=== PATIENT | female | born 1935 | race Caucasian/White ===

== ENCOUNTER 2022-07-14 14:30 | Outpatient (RCR) | payer MEDICARE, BC, SELFPAY ==
--- NOTE | 2022-06-28 20:14 | OT.OPGNE ---
OT Outpatient General/Neuro Eval OT Outpatient General/Neuro Eval Start: 06/23/22 15:47 Freq: Status: Active Protocol: Document 06/23/22 15:48 SMW (Rec: 06/23/22 15:58 SMW [id number]) E-signed By Marlen Kinsey OT OT Outpatient Evaluation Details Type Type Eval Complexity Low Insurance Information Insurance Information Insurance Information Blue [employer] Outpatient History/Precautions Medical/Functional History Medical History Reviewed Yes Prior Level of Function/Mobility Patient lives alone in her own condo after the recent passing of her spouse who was on hospice. She has a SPOUT LINER 2x per week for 2 hours and her daughter is supportive and speaks to her mother daily. She ambulates with a cane. She reports I in dressing. Her daughter sets up her medications and calls her mother 2x per day to remind her to take the meds. She reports community driving. Current Condition Treatment Diagnosis poor executive function, memory and orientation. Social History Type of Dwelling one level condo Number of Floors (Floors) 1 Number of Stairs to Enter (Stairs) 0 Lives With: Alone Physical Barriers in Home Environment Level, No Step Employment Status Retired Oriented Patient Orientation Person,Place Prior Medical History Prior Medical History Patient's medical history includes depression, arthritis , allergies. Patient Subjective Subjective Patient Subjective I am not sure why I am here. Home Maintenance Assessment ADL Oral Care Ability Independent Bathing Ability Independent Eating (Feeding) Ability Independent Upper Body Dressing Ability Independent Lower Body Dressing Ability Independent Grooming Ability Independent Toileting Ability Independent Ambulation Ability Independent Assistance Assistance Currently Received SPOUT LINER 2x per week and daughter involved and very supportive. Cognitive Assessments Performed Cognitive Assessments Performed Harvinder Cognitive Assessment (MOCA) Results Comments Cognitive Assessments Performed Comments Maze test completed in 59 seconds with 5 errors. Assessment Assessment Assessment The patient is a 86 year old female referred to outpatient OT for cognitive assessments to determine need for increased supervision and feasiblity of continuing to drive. The patient lives alone in her own condo. Her spouse within the last year. Her daughter present during evaluation and reports that patient will often call her to ask where her late is. The patient was not aware of why she was at her initiatl appointment. Daughter reports that the patient receives SPOUT LINER 2x per week and that the daughter is actively involved on a daily basis either in person or on the phone. During this initial assessment the MoCa was administered with the patient scoring 18/30. Normal cognition score 26/30 or greater.Deficits noted in executive function, language, orientation and delayed recall . The home safety/problem solving questionnaire was given with the patient scoring 8.5/17 indicating significant deficis in problem solving and safety concerns for living alone. Since the patient does still drive, the Maze test was completed with the patient completing it in 59 seconds but with 5 errors. The patient will benfit from skilled outpatient OT to complete cognitive assessments related to potential need for increased care and continued driving. Occupational Therapy Treatment Plan - OP Potential Rehabilitation Potential Good Set Goals Goals Set with Patient Yes Goals Goals Within 4 visits, the patient will.. 1. complete cognitive assessments to determine need for increased care. 2. complete off road driving assessments to determine feasibility of patient continuing to drive. 3. along with her daughter, understand recommendations provided. 4. be provided with resources for determined needs. Progress set Treatment Plan Treatment Plan Evaluation,Self-Care/Home Management,Caregiver Training, Education Expected Frequency 1x Week Certification Certification I Certify That: Therapy Services Provided, Therapy Plan Established, Therapy Plan Reviewed Recertification Information Recertification Information Initial Certification Date 06/23/22 Recertification Start Date 06/23/22 Provider Signature Shows Agreement With POC & Medical Necessity Physician Comment/Change Comment or Changes Physician NPI Number #
== END 2022-11-11 23:59 | disposition home or self-care (01) ==
PROVIDERS: PCP Family Medicine; Visit Provider Family Medicine
DX: R41.89 Other symptoms and signs involving cognitive functions and awareness (principal); Z51.89 Encounter for other specified aftercare
CPT/HCPCS: 97165; 97535

== ENCOUNTER 2022-08-10 10:53 | Outpatient (RCR) | payer SELFPAY | END 2022-08-29 16:59 | disposition home or self-care (01) | LOC: MOW 10:53 | PROVIDERS: PCP Family Medicine; Visit Provider Family Medicine | DX: Z76.0 Encounter for issue of repeat prescription (principal) | CPT/HCPCS: S5170 ==

== ENCOUNTER 2022-12-28 16:51 | Emergency (ER) | payer MEDICARE, BC, SELFPAY ==
[2022-12-28 16:57] VITALS: PULSE 74; RESP 16; TEMP 37.1; O2SAT 95; BMI 18.9
--- NOTE | 2022-12-28 17:16 | CRLHL7_ITS ---
For Patients: As a result of the Cures Act, medical imaging exams and procedure reports are released immediately into your electronic medical record. You may view this report before your referring provider. If you have questions, please contact your health care provider. INDICATION: Solomon fell on forearm, large laceration COMPARISON: None. TECHNIQUE: Two views left forearm. FINDINGS: BONES: No fracture. Low bone mineralization. No focal bone lesion. JOINT: Grossly normal elbow and wrist joint alignment. No elbow joint effusion. Joint spaces: Normal. Soft Tissues: Normal. No foreign body. IMPRESSION: No left forearm fracture or foreign body. Dictated by Dipti Cook MD @ 12/28/2022 6:09:39 PM (Electronically Signed)
--- NOTE | 2022-12-28 17:41 | ED.WOUNDLAC ---
HPI - Wound/Laceration General Date Seen: 12/28/22 Chief Complaint: Laceration/Wound Stated Complaint: Gash on L arm Time Seen by Provider: 12/28/22 16:56 Source: patient Mode of arrival: ambulatory Limitations: no limitations History of Present Illness HPI narrative: Patient is an 87-year-old female presented emergency department for lacerations or left forearm. She states roughly an hour prior to arrival a dresser was falling and she tried to catch it. That in a left arm leading to a large laceration. Bleeding is currently under control. Denies any other injuries. Has some mild pain to the left forearm. Last tetanus shot was 2016. Denies any numbness or weakness. No other concerns at this time Related Data Previous Rx's Medication Instructions Recorded aripiprazole 5 mg tablet (Abilify) 5 mg PO QDAY #90 tabs 08/08/22 donepezil 5 mg tablet 5 mg PO QHS #30 tabs 08/08/22 pregabalin 50 mg capsule 50 mg PO BID #180 caps 08/24/22 lorazepam 0.5 mg tablet 0.5 mg PO QDAY PRN anxiety #90 tabs 08/31/22 lorazepam 0.5 mg tablet 0.5 mg PO QHS #90 tabs 08/31/22 cholecalciferol (vitamin D3) 50 50 mcg PO QDAY #90 tabs 10/05/22 mcg (2,000 unit) tablet mecobalamin (vitamin B12) 1,000 1,000 mcg PO QDAY #90 tabs 10/05/22 mcg chewable tablet propranolol 10 mg tablet 10 mg PO BID #180 tabs 10/05/22 mirtazapine 45 mg tablet 45 mg PO QDAY #90 tabs 10/12/22 Allergies Allergy/AdvReac Type Severity Reaction Status Date / Time penicillin V Allergy Mild Rash Verified 08/08/22 15:51 PFSH [facility] Medical History (Updated 12/28/22 @ 19:18 by Sergio Cardona DO) Drooling ?K11.7 - Disturbances of salivary secretion (ICD-10) Dementia ?F03.90 - Unspecified dementia, unspecified severity, without behavioral disturbance, psychotic disturbance, mood disturbance, and anxiety (ICD-10) Decreased oral intake ?R63.8 - Other symptoms and signs concerning food and fluid intake (ICD-10) Grief ?F43.21 - Adjustment disorder with depressed mood (ICD-10) Encounter for medication management ?Z79.899 - Other intermission coordinator (current) drug therapy (ICD-10) Durable power of assistant city attorney in chart Vitamin D deficiency ?E55.9 - Vitamin D deficiency, unspecified (ICD-10) Anxiety ?F41.9 - Anxiety disorder, unspecified (ICD-10) Surgical History (Updated 01/10/22 @ 13:25 by Regine Ackerman) History of cataract extraction ?Z98.49 - Cataract extraction status, unspecified eye (ICD-10) Social History (Updated 01/10/22 @ 13:28 by Regien Ackerman) Narrative: nonsmoker Smoking Status: Never smoker Non-prescribed substance use: denies use Little interest or pleasure in doing things: more than half the days Feeling down, depressed, or hopeless: more than half the days Exam Const: Vital Signs, click to edit/add: Vital Signs - 24 hr 12/28/22 16:57 Temperature 98.8 F Pulse Rate [Pulse Oximeter] 74 Respiratory Rate 16 Pulse Oximetry 95 Oxygen Delivery Me thod Room Air Course Vital Signs Vital signs: Initial Vital Signs Temperature 98.8 F 12/28/22 16:57 Temperature Source Temporal Artery Scan 12/28/22 16:57 Pulse Rate 74 12/28/22 16:57 Respiratory Rate 16 12/28/22 16:57 Pulse Oximetry 95 12/28/22 16:57 Oxygen Delivery Method Room Air 12/28/22 16:57 Vital Signs Temperature 98.8 F 12/28/22 16:57 Pulse Rate 74 12/28/22 16:57 Respiratory Rate 16 12/28/22 16:57 Pulse Oximetry 95 12/28/22 16:57 Oxygen Delivery Method Room Air 12/28/22 16:57 Temperature 98.8 F 12/28/22 16:57 Pulse Rate 74 12/28/22 16:57 Respiratory Rate 16 12/28/22 16:57 Pulse Oximetry 95 12/28/22 16:57 Oxygen Delivery Method Room Air 12/28/22 16:57 MDM - Wound/Laceration MDM Narrative Medical decision making narrative: Patient is a 87 year female presented emergency department for left forearm laceration. It is a v-shaped laceration with a large flap that is still attached to the skin by about 1.5 cm at the base. Concerning the mechanism it do an x-ray which shows no acute fractures. I did do a laceration repair. See laceration procedure note. She tolerated the procedure well. No other concerns at this time. I believe it will heal well concerning there is a large be still attached. I did speak to the daughter informed to keep a close eye to look for signs of infection or necrotic skin. She states she understands. Imaging Data Left forearm x-ray: Radiologist's impression: INDICATION: Kincaid fell on forearm, large laceration COMPARISON: None. TECHNIQUE: Two views left forearm. FINDINGS: BONES: No fracture. Low bone mineralization. No focal bone lesion. JOINT: Grossly normal elbow and wrist joint alignment. No elbow joint effusion. Joint spaces: Normal. Soft Tissues: Normal. No foreign body. IMPRESSION: No left forearm fracture or foreign body. Dictated by Dipit Cook MD @ 12/28/2022 6:09:39 PM Discharge Plan Discharge Clinical Impression: Laceration Patient Disposition: Home, Self-Care Condition: Stable Instructions: Laceration (DC) Additional Instructions: Follow-up with your primary care provider in the next 10 days to have the 12 sutures removed. For next 6 months, once sutures are removed, whenever you goes outside put a dab of sunscreen over the laceration site to improve scar appearance. Topical antibiotics are not necessary at this time. Patient can shower but do not submerge the laceration until sutures are removed. If you see signs of infection or signs that the skin flap is not healing please follow-up sooner Prescriptions: No Action donepezil 5 mg tablet 5 mg PO QHS Qty: 30 2RF aripiprazole [Abilify] 5 mg tablet 5 mg PO QDAY Qty: 90 3RF pregabalin 50 mg capsule 50 mg PO BID Qty: 180 0RF lorazepam 0.5 mg tablet 0.5 mg PO QHS Qty: 90 0RF lorazepam 0.5 mg tablet 0.5 mg PO QDAY PRN (Reason: anxiety) Qty: 90 0RF cholecalciferol (vitamin D3) 50 mcg (2,000 unit) tablet 50 mcg PO QDAY Qty: 90 1RF propranolol 10 mg tablet 10 mg PO BID Qty: 180 1RF mecobalamin (vitamin B12) 1,000 mcg tablet,chewable 1,000 mcg PO QDAY Qty: 90 1RF mirtazapine 45 mg tablet 45 mg PO QDAY Qty: 90 3RF Follow Up/Referrals: Jose Alberto Lewis MD [Primary Care Provider] - Stand Alone Forms: [facility] Info Instructions Procedures Laceration Left forearm: Name of person performing procedure: Sergio Cardona Site: upper extremity Side (If applicable): left Size (cm): 6 (3 cm x 3 cm v-shaped) Description: linear and clean Depth: simple, single layer Local Anesthetic: lidocaine 1% Amount of anesthesia used (mL): 7 Pre-repair: wound explored, irrigated extensively and deep structures intact Skin layer closed with: nylon Size (cm): 4-0 Number of sutures: 12
--- OUTSIDE RECORDS SUMMARY | 2022-12-28 17:57 | XMS_ITS | Continuity of Care Document ---
Author Name Unknown Organization [facility] Address [address] [place] [address] Phone Care Team Providers Care Event Marketing Coordinator Name Role Phone Juventino Hammer MD Unavailable Unavailable Allergies, Adverse Reactions, Alerts Substance Reaction Status Criticality penicillamine Active No Information Medications Medication Instructions Dosage Effective Dates (start - stop) Status Comments multivitamin tablet take 1 tablet by ora l route every day with food - Active Vitamin B-12 500 mcg tablet take 1 tablet by oral route every day 1 tablet - Active Vitamin D3 1,000 unit capsule take 1 Capsule by Oral route every day 1 Capsule - Active aspirin 81 mg tablet,delayed release take 1 tablet by oral route every day 81 MG - Active Calcio Sherley 500 mg tablet take 2 Tablet by Oral route every day - Active Imodium A-D 1 mg/7.5 mL oral liquid - Active Procedures Procedure Date Office/Outpatient Visit, Est Routine Venipuncture Complete Cbc WAuto Diff Wbc Rbc Sed Rate, Nonautomated Assay Of Creatinine Transferase (Ast) (Sgot) CReactive Protein Rheumatoid Factor, IGM Rheumatoid Factor, IGG, IGA CCP Antibody Office/Outpatient Visit, Est Office/Outpatient Visit, Est Office/Outpatient Visit, Est Office/Outpatient Visit, New Routine Venipuncture Specimen Handling Rbc Sed Rate, Nonautomated CReactive Protein Assay Of Serum Albumin Assay Of Creatinine Transferase (Ast) (Sgot) Alanine Amino (Alt) (Sgpt) Results Test Name Date and Time Measure Units Reference Range Abnormal Flag Status Comments Panel Description: CBC Final WBC 16 16:40:00 4.4 K/uL 3.5-10.8 Final Lymphocyte% 16 16:40:00 34.9 % 15.1-43.0 Final Mid% Jun- 16 16:40:00 4.4 % 1.0-18.0 Final Gran% 16 16:40:00 60.7 % 45.0-76.0 Final Lymphocyte # 16 16:40:00 1.5 K/uL 0.9-5.2 Final Mid # 16 16:40:00 0.1 K/uL 0.1-2.0 Final Gran # 16 16:40:00 2.8 K/uL 1.4-19.0 Final RBC 16 16:40:00 3.89 M/uL 3.80-5.20 Final Hemoglobin 16 16:40:00 12.1 g/dL 11.5-16.0 Final Hematocrit 16 16:40:00 36.2 % 36.0-49.0 Final MCV 16 16:40:00 93 fL 81-100 Final MCH Jun- 16 16:40:00 31 pg 27-35 Final MCHC 16 16:40:00 33.5 g/dL 32.5-37.5 Final RDW Jun- 16 16:40:00 14.8 % 11.5-15.4 Final MPV 16 16:40:00 7.4 fL 6.0-10.4 Final Platelet Count 16 16:40:00 243 K/uL 130-400 Final Panel Description: ESR Final ESR 16 16:43:00 6 mm/hr 0-25 Final Panel Description: Creatinine Final Creatinine 16 16:57:00 0.6 mg/dL 0.5-1.3 Final GFR 16:57:00 102.8 mL/min/1. 73 m2 Final If patient is -Ameri can multiply result by 1.210 Panel Description: AST Final AST 16:57:00 14 U/L 5-34 Final Panel Description: CRP Final CRP 16:57:00 0.02 MG/DL 0.00-0.60 Final LOW=Actual Result is BELOW Linearity of Analyzer Panel Description: CCP Final cCP 11:13:00 0.1 U/mL 0.0-5.0 Final Panel Description: RF/3 Final RF IgM 14:43:00 5.0 IU/mL 0.0-25.0 Final RF IgA 14:43:00 7.0 Units/mL 0.0-35.0 Final RF IgG 14:43:00 7.0 Units/mL 0.0-20.0 Final Advance Directives Directive Yes / No Effective Date File Name No Information Encounters Encounter Description Practice Location Reason(s) For Visit Diagnoses Date Provider Providers Copied on Encounter Office/Outpa tient Visit, Est [facility] , [address], [place], [address], [place] tel:[phone] [facility] , 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 [facility] [address], [place], [address], [place]. tel:[phone] Referring Provider: Juventino Hightower, [facility] [address], [place], [address]. tel:[phone] Office/Outpa tient Visit, Est [facility] , [address], [place], [address], [place] tel:[phone] [facility] , Inflammatory arthritis (chief complaint) Inflammatory polyarthropa thy 5 Harman Jauregui. [facility] [address], [place], [address], [place]. tel:[phone] Referring Provider: Juventino Hightower, [facility] [address], [place], [address]. tel:[phone] Office/Outpa tient Visit, Est [facility] , [address], [place], [address], [place] tel:[phone] [facility] , Rheumatoid Arthritis (chief complaint) Unspecified inflammatory polyarthropa thy Harman Jauregui. [facility] [address], [place], [address], [place]. tel:[phone] Referring Provider: Juventino Hightower, [facility] [address], [place], [address]. 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 [facility] [address], [place], [address], [place]. tel:[phone] Referring Provider: Juventino Hightower, [facility] [address], [place], [address]. tel:[phone] Office/Outpa tient Visit, New [facility] , [address], [place], [address], [place] tel:[phone] [facility] , Joint Pain (chief complaint) Pain in joint involving multiple sitesOther and unspecified nonspecific immunologica l findings 4 Harman Jauregui. [facility] [address], [place], [address], [place]. tel:[phone] Referring Provider: Juventino Hightower, [facility] [address], [place], [address]. tel:[phone] Family History Family Member Type Diagnosis Age At Onset No Information Payers Payer name Insurance type Covered alliance party ID Authoriza teddy(s) Medicare [place] [id number] [facility] [id number] Social History Type Description Quantity Date Captured Comments Alcohol Use Details Unknown Caffeine Use Details Unknown Tobacco Use Status No Information Smoking Status Never smoker The pat toney is and has 2 children. She is retired. Non-Smoking Tobacco Use Details : No Details Available : No Details Available Sex Female Vital Signs Date / Time: Height Weight BMI Pulse Rate Blood Pressure Temperature Respiratory Rate Body Surface Area Head Circumference Head Circ. Percentile Wt./Adis. Percentile BMI percentile Pulse Ox Inhaled Ox 3:15 PM 157.48 cm 49.895 kg (110.00 lbs) 20.1 2 kg/m eter (2) 100/60 mm[Hg] Chief Complaint And Reason For Visit From encounter dated '06/28/2015 15:15'. Inflammatory Polyarthropathy (chief complaint) Reason For Referral Reason For Referral No Information History Of Present Illness Encounter Date Complaint History Of Prese nt Illness Inflammatory Polyarthropathy Inflammatory arthritis Functional Status Date Functional Assessmen t No Information Instructions Date Instruction Additional Infor todd Option to add OTC PPI Rx. Relate d to ad terminal makeup operator (current) use of non-steroidal anti-inflammatories (NSAID) Use OTC naproxen mor e liberally in the near term up toward 2 tablets twice a day when necessary. Option to switch to low-dose prednisone 5 milligrams per day should the naproxen be inadequate.Should synovitis activity continue, I will have low threshold to initiate low-dose methotrexate versus hydroxychloroquine. 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 The patient does have prednisone on hand for burst and taper usage should she have recurrent acute/subacute flaring.The patient's followup here will depend upon her evolving status, although I encouraged her to have a low threshold to check in with us once-twice yearly. Related to Inflammatory polyarthropathy Assessments Type Assessment Date assessment RA w/ rheumatoid fac tor of multiple sites w/o organ involvement assessment custodial (current) use of non-steroidal anti-inflammatories (NSAID) impression The recurrent synovi tis activity at the knees likely is unrelated to the falls the patient experienced in the late winter. The patient again responded very nicely to prednisone burst and taper, however she has had persistent, low level knee synovitis since that time (6 weeks). Thus, I suspect that the patient's initial palindromic pattern is evolving into one of more persistent synovitis, which is commonly seen in seropositive rheumatoid arthritis. However, the patient continues to prefer to minimize medication usage as able. impression The pt uses low dose NSAID, but may have had some related stomach upset. Mental Status Date Cognitive Assessment Orientation - [place] ed to time, place, person, situation. Patient Care Teams Name Effective Dates (start - stop) Status Members No Information
== END 2022-12-28 19:30 | disposition home or self-care (01) ==
PROVIDERS: Emergency Provider Student in an Organized Health Care Education/Training Program; PCP Family Medicine
DX: S51.812A Laceration without foreign body of left forearm, initial encounter (principal); W26.9XXA Contact with unspecified sharp object(s), initial encounter
CPT/HCPCS: 12002; 73090; 99283